=== PATIENT | male | born 1990 | race Caucasian/White ===

== ENCOUNTER 2020-03-31 13:56 | Emergency (ER) | payer MEDICAID ==
[~2020-03-31] VITALS: Ht 167.6 cm; Wt 71.0 kg
[2020-03-31 14:29] VITALS: BP 118/86
== END 2020-03-31 16:02 | disposition home or self-care (01) ==
LOC: ER 13:56
DX: M25.561 Pain in right knee (principal); Z98.890 Other specified postprocedural states
CPT/HCPCS: 99282; L1830